=== PATIENT | male | born 1985 | race Caucasian/White ===

== ENCOUNTER 2017-11-01 02:20 | Emergency (ER) | payer BC, OTHER ==
[2017-11-01] MEDS ORDERED: Benzocaine 20% Topical Spray UD MUCMEM ONE (02:38)
[2017-11-01] MEDS ORDERED: Lidocaine 2% Viscous Solution 15 ML Cup PO ONE (02:38)
--- NOTE | 2017-11-01 02:43 | EDM.PDOC ---
ED HPI GENERAL MEDICAL PROBLEM - General Chief Complaint: General Stated Complaint: TOOTH PAIN Time Seen by Provider: 11/01/17 02:32 - History of Present Illness INITIAL COMMENTS - FREE TEXT/NARRATIVE: HISTORY AND PHYSICAL: History of present illness: The patient is a 32-year-old male with no stated medical problems presents with a day and a half of pain to his front 2 lower teeth, teeth 24 and 25. The patient has not noticed any swelling to his face and is eating and drinking normally and he says he does grind his teeth when he sleeping. Patient has appointment with the dentist on Friday and has been using [id number] Advil but is concerned and is here for evaluation. He has had no trauma to the area and he has no other systemic complaints Review of systems: As per history of present illness and below otherwise all systems reviewed and negative. Past medical history: As per history of present illness and as reviewed below otherwise noncontributory. Surgical history: As per history of present illness and as reviewed below otherwise noncontributory. Social history: No reported history of drug or alcohol abuse. Family history: As per history of present illness and as reviewed below otherwise noncontributory. Physical exam: General: Well-developed well-nourished mildly overweight man who is nontoxic and was no visible evidence of any facial swelling. HEENT: Atraumatic, normocephalic, pupils reactive, negative for conjunctival pallor or scleral icterus, mucous membranes moist, throat clear, neck supple, nontender, trachea midline. There is no cervical adenopathy or nuchal rigidity and there is no gross dental disease or dental caries seen but there is some discomfort at the gumline of teeth 24 and 25 without any subluxation and there is some pain with tap. There is no fluctuance of the gum and no soft tissue swelling and the remainder of the mouth is within normal limits. Lungs: Clear to auscultation, breath sounds equal bilaterally, chest nontender. Heart: S1S2, regular rate and rhythm no overt murmurs Abdomen: Soft, nondistended, nontender. NABS Pelvis: Deferred Genitourinary: Deferred. Rectal: Deferred. Extremities: Atraumatic, full range of motion. Neurovascular unremarkable. Neuro: Awake, alert, oriented. Cranial nerves II through XII unremarkable. Cerebellum unremarkable. Motor and sensory unremarkable throughout. Exam nonfocal. Diagnostics: [] Therapeutics: Dental balls Impression: Dental pain Definitive disposition and diagnosis as appropriate pending reevaluation and review of above. tooth Pain Score (Numeric/FACES): 9 - Related Data Allergies Allergy/AdvReac Type Severity Reaction Status Date / Time No Known Allergies Allergy Verified 11/01/17 02:32 Home Meds: Home Meds . [No Known Home Meds] 11/01/17 [History] Past Medical History HEENT History: Reports: None Cardiovascular History: Reports: None Respiratory History: Reports: None Gastrointestinal History: Reports: None Genitourinary History: Reports: None Musculoskeletal History: Reports: None Neurological History: Reports: None Psychiatric History: Reports: None Endocrine/Metabolic History: Reports: None Hematologic History: Reports: None Dermatologic History: Reports: None - Infectious Disease History Infectious Disease History: Reports: Chicken Pox Social & Family History - Family History Family Medical History: Noncontributory - Tobacco Use Smoking Status *Q: Never Smoker - Recreational Drug Use Recreational Drug Use: No ED ROS GENERAL - Review of Systems Review Of Systems: ROS reveals no pertinent complaints other than HPI. ED EXAM, GENERAL - Physical Exam Exam: See Below (See dictation) Course - Vital Signs Last Recorded V/S: Last Vital Signs Temp 36.2 C 11/01/17 02:32 Pulse 66 11/01/17 02:32 Resp 16 11/01/17 02:32 BP 147/85 H 11/01/17 02:32 Pulse Ox 98 11/01/17 02:32 - Orders/Labs/Meds Meds: Medications Discontinued Medications Generic Name Dose Route Start Last Admin Trade Name Luiz PRN Reason Stop Dose Admin Benzocaine 2 each 11/01/17 02:38 Hurricaine One 20% MUCMEM 11/01/17 02:39 ONETIME ONE Lidocaine HCl 15 ml 11/01/17 02:38 Xylocaine 2% Viscous PO 11/01/17 02:39 ONETIME ONE Departure - Departure Time of Disposition: 02:42 Disposition: Home, Self-Care 01 Condition: Good Clinical Impression: Pain, dental - Discharge Information Referrals: PCP,None [Primary Care Provider] - Additional Instructions: The following information is given to patients seen in the emergency department who are being discharged to home. This information is to outline your options for follow-up care. We provide all patients seen in our emergency department with a follow-up referral. The need for follow-up, as well as the timing and circumstances, are variable depending upon the specifics of your emergency department visit. If you don't have a primary care physician on staff, we will provide you with a referral. We always advise you to contact your personal physician following an emergency department visit to inform them of the circumstance of the visit and for follow-up with them and/or the need for any referrals to a consulting specialist. The emergency department will also refer you to a specialist when appropriate. This referral assures that you have the opportunity for followup care with a specialist. All of these measure are taken in an effort to provide you with optimal care, which includes your followup. Under all circumstances we always encourage you to contact your private physician who remains a resource for coordinating your care. When calling for followup care, please make the office aware that this follow-up is from your recent emergency room visit. If for any reason you are refused follow-up, please contact the [facility] emergency department at and ask to speak to the emergency department charge nurse. [facility] Primary care- [place] [address] Please keep your appointment on Friday with the dentist and use amoxicillin you have been given via [facility] as directed. Please take [id number] medications for pain as well as use the dental balls you have been given tonight. Place ice on face for any swelling and return to ER as needed and as discussed
== END 2017-11-01 03:00 | disposition home or self-care (01) ==
LOC: MW.ED 02:20
DX: K08.89 Other specified disorders of teeth and supporting structures (principal)
CPT/HCPCS: 99282; A9270

== ENCOUNTER 2022-01-05 17:16 | Emergency (ER) | payer OTHER | END 2022-01-05 17:45 | disposition home or self-care (01) | LOC: MW.ED 17:16 | DX: H66.001 Acute suppurative otitis media without spontaneous rupture of ear drum, right ear (principal) | CPT/HCPCS: 99282; 99283 ==